=== PATIENT | female | born 1980 | race Caucasian/White ===

== ENCOUNTER 2017-07-31 20:48 | Outpatient (CLI) | payer OTHER | END 2017-07-31 21:03 | disposition home or self-care (01) | LOC: NST 20:48 | DX: Z34.83 Encounter for supervision of other normal pregnancy, third trimester (principal) ==

== ENCOUNTER 2017-08-09 16:39 | Inpatient (IN) | payer OTHER ==
[~2017-08-09] VITALS: Ht 162.6 cm; Wt 68.5 kg
[2017-09-05] MEDS ORDERED: PRENATAL VITAM1 EAC2 PO (09:25)
== END 2017-09-07 12:41 | disposition home or self-care (01) | DRG 775 ==
LOC: LDR 08-31 16:37 → SURG-SUITE 09-05 10:45
PROC: 10E0XZZ Delivery of Products of Conception, External Approach (ICD-10-PCS; principal; 2017-09-05)
PROC: 0UQGXZZ Repair Vagina, External Approach (ICD-10-PCS; 2017-09-05)
PROC: 3E0P7VZ Introduction of Hormone into Female Reproductive, Via Natural or Artificial Opening (ICD-10-PCS; 2017-09-05)
PROC: 3E033VJ Introduction of Other Hormone into Peripheral Vein, Percutaneous Approach (ICD-10-PCS; 2017-09-05)
PROC: 4A1HXCZ Monitoring of Products of Conception, Cardiac Rate, External Approach (ICD-10-PCS; 2017-09-05)
DX: O71.4 Obstetric high vaginal laceration alone (principal); Z3A.40 40 weeks gestation of pregnancy; Z37.0 Single live birth; O09.513 Supervision of elderly primigravida, third trimester

== ENCOUNTER 2017-08-24 16:02 | Outpatient (CLI) | payer OTHER | END 2017-08-24 18:49 | disposition home or self-care (01) | LOC: NST 16:02 | DX: Z34.83 Encounter for supervision of other normal pregnancy, third trimester (principal) ==

== ENCOUNTER 2017-09-03 10:29 | Outpatient (CLI) | payer OTHER | END 2017-09-03 11:07 | disposition home or self-care (01) | LOC: NST 10:29 | DX: Z34.83 Encounter for supervision of other normal pregnancy, third trimester (principal) ==